=== PATIENT | female | born 1990 | race Caucasian/White ===

== ENCOUNTER 2018-01-05 17:14 | Inpatient (IN) | payer OTHER ==
[~2018-01-05] VITALS: Ht 157.5 cm; Wt 75.7 kg
[2018-01-07 02:04] VITALS: BP 132/86
[2018-01-07 02:05] VITALS: BP 132/86
[2018-01-07] MEDS ORDERED: PNV11TAB PO (02:11)
[2018-01-07] MEDS ORDERED: OXYTOCIN 30 UNITS/LACT RINGERS 500 ML IV ONE (02:38)
[2018-01-07] MEDS ORDERED: RINGERS SOLUTION,LACTATED 1,000 ML IV ONE (02:38)
[2018-01-07] MEDS ORDERED: LIDOCAINE HCL/PF 1% 30 ML VIAL INJ PRN (02:45)
[2018-01-07] MEDS ORDERED: CITRIC ACID/SODIUM CITRATE 30 ML SOLUTION UDCUP PO PRN (02:45)
[2018-01-07] MEDS ORDERED: METOCLOPRAMIDE HCL 5 MG/ML 2 ML VIAL IVP PRN (02:45)
[2018-01-07] MEDS ORDERED: DINOPROSTONE 10 MG VAGINAL SUPPOSITORY VG ONE (02:45)
[2018-01-07] MEDS ORDERED: CLINDAMYCIN 900 MG/D5% WATER 50 ML IV SCH (03:00)
[2018-01-07 03:27] LABS: BASOPHILS % (AUTO) 0.3 % (0.0-2.0); EOSINOPHILS % (AUTO) 0.6 % (1.0-6.0); HEMATOCRIT 38.3 % (36-46); HEMOGLOBIN 13.1 g/dL (12.0-16.0); LYMPHOCYTES # (AUTO) 2.5 K/uL (1.0-4.8); LYMPHOCYTES % (AUTO) 22.8 % (22.0-44.0); MEAN CORPUSCULAR HEMOGLOBIN 32.5 pg (26.0-34.0); MEAN CORPUSCULAR HGB CONC 34.3 G/dL (31.0-37.0); MEAN CORPUSCULAR VOLUME 95 fL (80-100); MONOCYTES # (AUTO) 0.7 K/uL (0.1-1.0); MONOCYTES % (AUTO) 6.7 % (2.0-9.0); NEUTROPHILS # (AUTO) 7.5 K/uL (1.8-7.7); NEUTROPHILS % (AUTO) 69.6 % (40.0-70.0); PLATELET COUNT (AUTO)-OB 188 K/uL (150-450); RED BLOOD CELL COUNT(AUTO) 4.03 MIL/uL (4.00-5.20); RED CELL DISTRIBUTION WIDTH 12.7 % (11.5-14.5)
[2018-01-07] MEDS: RINGERS SOLUTION,LACTATED 1,000 ML IV SCH ×2 (03:29→08:54)
[2018-01-07] MEDS ORDERED: ROPIVACAINE HCL/PF 0.2% 100 ML ED ONE (06:24)
[2018-01-07] MEDS ORDERED: FentaNYL/BUPIV 0.125%/NS/PF 200 ML ED PRN (06:50)
[2018-01-07] MEDS ORDERED: NALBUPHINE HCL 10 MG/ML VIAL IVP PRN (07:00)
[2018-01-07] MEDS ORDERED: DiphenhydrAMINE HCL 50 MG/ML VIAL IVP PRN (07:00)
[2018-01-07] MEDS ORDERED: ONDANSETRON HCL 4 MG/2 ML VIAL IVP PRN (07:00)
[2018-01-07] MEDS ORDERED: AMPICILLIN SODIUM 2 GM/NS 100 ML IV ONE ×2 (07:30→12:00)
[2018-01-07] MEDS ORDERED: OXYTOCIN 30 UNITS/LACT RINGERS 500 ML IV PRN (07:31)
[2018-01-07] MEDS ORDERED: ACETAMINOPHEN/CODEINE 300-30 MG TABLET PO PRN (11:30)
[2018-01-07] MEDS ORDERED: AMPICILLIN SODIUM 1 GM/NS 50 ML IV SCH ×2 (11:30→16:00)
[2018-01-07] MEDS ORDERED: BENZOCAINE 20%/MENTHOL 56 GM SPRAY CANISTER TP PRN (11:30)
[2018-01-07] MEDS ORDERED: GLYCERIN/WITCH HAZEL LEAF 40 PADS JAR TP PRN (11:30)
[2018-01-07] MEDS ORDERED: LANOLIN 7 GM OINTMENT TP PRN (11:30)
[2018-01-07] MEDS ORDERED: -PHARMACY NOTE- MISC ONE (14:45)
[2018-01-07] MEDS: IBUPROFEN 800 MG TABLET PO SCH ×2 (17:56→23:52)
[2018-01-07] MEDS: ACETAMINOPHEN/CODEINE 300-30 MG TABLET PO PRN (22:16)
[2018-01-07] MEDS: MAGNESIUM HYDROXIDE SUSPENSION 30 ML UDCUP PO SCH (22:16)
[2018-01-08] MEDS ORDERED: AMPICILLIN SODIUM 2 GM/NS 100 ML IV ONE
[2018-01-08] MEDS ORDERED: AMPICILLIN SODIUM 1 GM/NS 50 ML IV SCH (04:00)
[2018-01-08] MEDS: IBUPROFEN 800 MG TABLET PO SCH (06:02)
[2018-01-08] MEDS: MAGNESIUM HYDROXIDE SUSPENSION 30 ML UDCUP PO SCH (09:00)
[2018-01-08] MEDS ORDERED: SENNA/DOCUSATE SODIUM 187-50 MG TABLET PO ONE (09:45)
[2018-01-08] MEDS ORDERED: IBUP-2071 PO (10:20)
[2018-01-08] MEDS: ACETAMINOPHEN/CODEINE 300-30 MG TABLET PO PRN (11:53)
== END 2018-01-08 13:40 | disposition home or self-care (01) | DRG 775 ==
LOC: 4S 01-07 01:04 → OBSVTOIN 01-07 01:04
PROVIDERS: ADMIT Obstetrics & Gynecology; ATTEND Obstetrics & Gynecology
PROC: 10E0XZZ Delivery of Products of Conception, External Approach (ICD-10-PCS; principal; 2018-01-07)
PROC: 0W8NXZZ Division of Female Perineum, External Approach (ICD-10-PCS; 2018-01-07)
PROC: 3E0R3BZ Introduction of Anesthetic Agent into Spinal Canal, Percutaneous Approach (ICD-10-PCS; 2018-01-07)
PROC: 00HU33Z Insertion of Infusion Device into Spinal Canal, Percutaneous Approach (ICD-10-PCS; 2018-01-07)
DX: O69.81X0 Labor and delivery complicated by cord around neck, without compression, not applicable or unspecified (principal); O77.0 Labor and delivery complicated by meconium in amniotic fluid; Z37.0 Single live birth; Z3A.40 40 weeks gestation of pregnancy
CPT/HCPCS: 86850; 86900; 86901; J0290; J2590; J2765; J2795; J7120